=== PATIENT | female | born 1965 | race Caucasian/White ===

== ENCOUNTER 2021-02-01 02:07 | Inpatient (IN) ==
[2021-02-01] MEDS ORDERED: ENOXAPARIN 40 MG/0.4 ML SYRINGE SUBCUT SCH (03:00)
[2021-02-01] MEDS ORDERED: NOREPINEPHRINE 4 MG/4 ML VIAL IV ONE (05:35)
[2021-02-01] MEDS: NOREPINEPHRINE 8 MG in SODIUM CHLORIDE 0.9% 242 ML IV PRN (06:00)
[2021-02-01 06:16] LABS: Basophils % 0.2 % (0.0-0.8); Eosinophils % 0.1 % (0.00-10.9); Hematocrit 41.2 VOL% (35.7-47.0); Immature Granulocytes % 2.3 %; Immature Granulocytes Absolute 0.25 #; Lymphocytes # 1.5 10*3/uL (1.4-4.0); Lymphocytes % 14.3 % (21.3-54.2); Mean Corpuscular HGB Conc 31.6 GM/DL (32-36); Mean Corpuscular Volume 90.2 FL (87-102); Mean Platelet Volume 8.7 FL (9.6-12.0); Monocytes % 9.7 % (1.7-12.7); NRBC # 0.06 10*3/uL; Neutrophils % 73.4 % (38.7-73.9); Platelet Count 274 T/CUMM (130-400); Red Blood Count 4.57 MC/CUMM (3.8-5.5); Red Cell Distribution Width 15.4 % (9.3-17.3); White Blood Count 10.8 T/CUMM (4-12)
[2021-02-01 06:17] LABS: Basophils % 0.3 % (0.0-0.8); Eosinophils % 0.1 % (0.00-10.9); Hematocrit 41.1 VOL% (35.7-47.0); Hemoglobin 12.9 GM/DL (12.0-16.0); Immature Granulocytes % 2.5 %; Immature Granulocytes Absolute 0.27 #; Lymphocytes # 1.6 10*3/uL (1.4-4.0); Lymphocytes % 14.6 % (21.3-54.2); Mean Corpuscular HGB Conc 31.4 GM/DL (32-36); Mean Corpuscular Volume 90.3 FL (87-102); Mean Platelet Volume 8.6 FL (9.6-12.0); Monocytes % 9.9 % (1.7-12.7); NRBC # 0.05 10*3/uL; Neutrophils % 72.6 % (38.7-73.9); Platelet Count 279 T/CUMM (130-400); Red Blood Count 4.55 MC/CUMM (3.8-5.5); Red Cell Distribution Width 15.4 % (9.3-17.3); White Blood Count 10.6 T/CUMM (4-12)
[2021-02-01 06:38] LABS: Hypochromasia 1+; Microcytosis 1+
[2021-02-01 06:39] LABS: Ovalocytes Slight; Platelet Estimate Normal
[2021-02-01 06:43] LABS: Alanine Aminotransferase 34 U/L (13-56); Albumin 2.6 G/DL (3.4-5.0); Alkaline Phosphatase 94 U/L (45-117); Aspartate Amino Transferase 46 U/L (0-37); Bilirubin,Total < 0.39 MG/DL (0.20-1.00); Blood Urea Nitrogen 34 MG/DL (7-18); Calcium 8.2 MG/DL (8.5-10.1); Carbon Dioxide 26 MMOL/L (21-32); Estimated Glom Filtration Rate 51 ML/MIN; Glucose 129 MG/DL (74-106); Osmolality,Calculated 277.2 MOS/KG (273-304); Potassium 3.1 MMOL/L (3.5-5.1); Sodium 134 MMOL/L (136-145)
[2021-02-01 06:44] LABS: Albumin 2.6 G/DL (3.4-5.0); Calcium 8.3 MG/DL (8.5-10.1); Potassium 3.1 MMOL/L (3.5-5.1); Total Protein 6.3 G/DL (6.4-8.2)
[2021-02-01 06:51] LABS: Ferritin 817.9 ng/mL (8-252)
[2021-02-01 07:05] LABS: ABG Base Excess -0.7 MMOL/L (-2.5-2.5); ABG HCO3 23.6 MMOL/L (20-26); ABG Oxygen Saturation 90.7 % (95-100); ABG PCO2 37.4 MM HG (35-48); ABG PH 7.408 (7.35-7.45); ABG PO2 62.3 MM HG (80-95); ABG TCO2 20.5 MMOL/L (23-27)
[2021-02-01] MEDS ORDERED: LACTATED RINGERS 1,000 ML IV ONE (07:36)
[2021-02-01] MEDS: FAMOTIDINE 20 MG TABLET PO SCH ×2 (08:39→20:55)
[2021-02-01] MEDS: PARoxetine 20 MG TABLET PO SCH (08:39)
[2021-02-01] MEDS: POTASSIUM CHLORIDE 20 MEQ TABLET PO PRN ×4 (08:39→18:04)
[2021-02-01] MEDS: ASCORBIC ACID 500 MG TABLET PO SCH ×2 (08:39→20:55)
[2021-02-01] MEDS: ZINC GLUCONATE 50 MG TABLET PO SCH (08:39)
[2021-02-01] MEDS: CHOLECALCIFEROL 5,000 UNIT TABLET PO SCH (08:39)
[2021-02-01] MEDS: CETIRIZINE 10 MG TABLET PO SCH (08:40)
[2021-02-01] MEDS: ENOXAPARIN 60 MG/0.6 ML SYRINGE SUBCUT SCH ×2 (08:40→20:59)
[2021-02-01] MEDS: methylPREDNISolone SOD SUC 40 MG/1 ML VIAL IV SCH ×3 (08:40→20:59)
[2021-02-01] MEDS: IVERMECTIN 3 MG TABLET PO SCH (08:41)
[2021-02-01 08:53] LABS: Bacteria,Urine Occasional /HPF (Few); Bilirubin,Urine Negative (Negative); Blood, Urine Moderate mg/dL (Negative); Glucose,Urine (UA) Negative (Negative); Hyaline Casts,Urine 18 /LPF (0-3); Ketones,Urine Negative (Negative); Mucus,Urine Occasional /LPF (Occasional); Nitrite,Urine Negative (Negative); Protein,Urine 100 MG/DL; RBC,Urine 57 /HPF (0-4); Squamous Epithelial Cell,Urine Occasional /HPF (0-10); Urine Appearance Slightly Hazy (Clear); Urine Color Yellow (Yellow); Urine Specific Gravity 1.018 (1.001-1.035)
[2021-02-01] MEDS ORDERED: MAGNESIUM SULF RIDER 2 GM/50 ML PREMIX IV PRN (09:02)
[2021-02-01] MEDS ORDERED: MAGNESIUM SULF RIDER 4 GM/100 ML PREMIX IV PRN (09:02)
[2021-02-01] MEDS ORDERED: DEXTROSE 50% 25 GM/50 ML VIAL IV PRN (09:03)
[2021-02-01] MEDS ORDERED: GLUCAGON 1 MG VIAL IM PRN (09:03)
[2021-02-01] MEDS ORDERED: MIDAZOLAM 2 MG/2 ML VIAL IV ONE (09:14)
[2021-02-01] MEDS: DEXTROSE 5% LACTATED RINGERS 1,000 ML IV SCH ×2 (10:38→18:01)
[2021-02-01] MEDS: fentaNYL INJ 1,250 MCG in SODIUM CHLORIDE 0.9% 225 ML IV PRN (10:55)
[2021-02-01] MEDS: cefTRIAXone 1,000 MG in SODIUM CHLORIDE 0.9% 100 ML IV SCH (10:56)
[2021-02-01] MEDS: AZITHROMYCIN INJ 500 MG in SODIUM CHLORIDE 0.9% 250 ML IV SCH (12:21)
[2021-02-01] MEDS: INSULIN LISPRO 100 UNIT/ML SUBCUT SCH ×2 (12:41→18:59)
[2021-02-01] MEDS ORDERED: TOCILIZUMAB 800 MG in SODIUM CHLORIDE 0.9% 100 ML IV ONE (15:00)
[2021-02-01] MEDS: MELATONIN 3 MG TABLET PO SCH (20:55)
[2021-02-01] MEDS: ACETAMINOPHEN 325 MG TABLET PO PRN (21:38)
[2021-02-02] MEDS: fentaNYL INJ 1,250 MCG in SODIUM CHLORIDE 0.9% 225 ML IV PRN ×2 (00:08→11:37)
[2021-02-02] MEDS: NOREPINEPHRINE 8 MG in SODIUM CHLORIDE 0.9% 242 ML IV PRN ×2 (00:35→21:38)
[2021-02-02] MEDS: ACETAMINOPHEN 325 MG TABLET PO PRN ×2 (00:58→18:15)
[2021-02-02] MEDS: INSULIN LISPRO 100 UNIT/ML SUBCUT SCH ×4 (00:58→18:08)
[2021-02-02] MEDS: DEXTROSE 5% LACTATED RINGERS 1,000 ML IV SCH ×2 (01:15→03:51)
[2021-02-02] MEDS: methylPREDNISolone SOD SUC 40 MG/1 ML VIAL IV SCH ×4 (03:56→21:43)
[2021-02-02 04:37] LABS: ABG Base Excess -0.9 MMOL/L (-2.5-2.5); ABG HCO3 23.7 MMOL/L (20-26); ABG Oxygen Saturation 99.8 % (95-100); ABG PH 7.449 (7.35-7.45); ABG TCO2 19.2 MMOL/L (23-27)
[2021-02-02 05:14] LABS: Basophils % 0.3 % (0.0-0.8); Hematocrit 40.3 VOL% (35.7-47.0); Hemoglobin 12.7 GM/DL (12.0-16.0); Immature Granulocytes Absolute 0.69 #; Lymphocytes # 1.2 10*3/uL (1.4-4.0); Lymphocytes % 10.2 % (21.3-54.2); Mean Corpuscular HGB Conc 31.5 GM/DL (32-36); Mean Corpuscular Volume 90.4 FL (87-102); Mean Platelet Volume 9.4 FL (9.6-12.0); Monocytes % 8.1 % (1.7-12.7); NRBC # 0.11 10*3/uL; Neutrophils % 75.4 % (38.7-73.9); Platelet Count 307 T/CUMM (130-400); Red Blood Count 4.46 MC/CUMM (3.8-5.5); Red Cell Distribution Width 15.2 % (9.3-17.3); White Blood Count 11.5 T/CUMM (4-12)
[2021-02-02 05:40] LABS: Albumin 2.2 G/DL (3.4-5.0); Bilirubin,Total 0.4 MG/DL (0.20-1.00); Calcium 8.6 MG/DL (8.5-10.1); Ferritin 568.6 ng/mL (8-252); Osmolality,Calculated 294.3 MOS/KG (273-304); Potassium 3.7 MMOL/L (3.5-5.1)
[2021-02-02 05:45] LABS: Band Neutrophils 2 % (0-10); Hypochromasia Slight; Lymphocytes 6 % (20-55); Microcytosis Slight; Nucleated Red Blood Cells 1 (0-5); Platelet Estimate Adequate; Segmented Neutrophils 87 % (50-85); Total Cells Counted 100
[2021-02-02] MEDS: cefTRIAXone 1,000 MG in SODIUM CHLORIDE 0.9% 100 ML IV SCH (06:12)
[2021-02-02] MEDS ORDERED: LACTATED RINGERS 1,000 ML IV SCH (08:30)
[2021-02-02] MEDS: PARoxetine 20 MG TABLET PO SCH (09:12)
[2021-02-02] MEDS: CHOLECALCIFEROL 5,000 UNIT TABLET PO SCH (09:12)
[2021-02-02] MEDS: ENOXAPARIN 60 MG/0.6 ML SYRINGE SUBCUT SCH ×2 (09:12→21:42)
[2021-02-02] MEDS: ZINC GLUCONATE 50 MG TABLET PO SCH (09:12)
[2021-02-02] MEDS: ASCORBIC ACID 500 MG TABLET PO SCH ×2 (09:13→21:43)
[2021-02-02] MEDS: AZITHROMYCIN INJ 500 MG in SODIUM CHLORIDE 0.9% 250 ML IV SCH (09:13)
[2021-02-02] MEDS: FAMOTIDINE 20 MG TABLET PO SCH ×2 (09:13→21:43)
[2021-02-02] MEDS: CETIRIZINE 10 MG TABLET PO SCH (09:13)
[2021-02-02] MEDS: IVERMECTIN 3 MG TABLET PO SCH (09:15)
[2021-02-02] MEDS: PIPERACILLIN/TAZOBACTAM 3,375 MG in SODIUM CHLORIDE 0.9% 100 ML IV SCH ×2 (10:39→18:08)
[2021-02-02 12:02] LABS: ABG Base Excess -3.6 MMOL/L (-2.5-2.5); ABG HCO3 21.4 MMOL/L (20-26); ABG Oxygen Saturation 97.3 % (95-100); ABG PCO2 39.4 MM HG (35-48); ABG PH 7.349 (7.35-7.45)
[2021-02-02] MEDS: MELATONIN 3 MG TABLET PO SCH (21:43)
[2021-02-03] MEDS: fentaNYL INJ 1,250 MCG in SODIUM CHLORIDE 0.9% 225 ML IV PRN ×2 (00:20→14:40)
[2021-02-03] MEDS ORDERED: ROCURONIUM 100 MG/10 ML VIAL IV ONE ×2 (01:57→02:07)
[2021-02-03] MEDS: methylPREDNISolone SOD SUC 40 MG/1 ML VIAL IV SCH ×4 (02:36→21:29)
[2021-02-03] MEDS: INSULIN LISPRO 100 UNIT/ML SUBCUT SCH ×4 (02:36→18:38)
[2021-02-03] MEDS: ACETAMINOPHEN 325 MG TABLET PO PRN (04:21)
[2021-02-03 04:24] LABS: ABG Base Excess -0.7 MMOL/L (-2.5-2.5); ABG HCO3 23.9 MMOL/L (20-26); ABG Oxygen Saturation 99.3 % (95-100); ABG PCO2 33.3 MM HG (35-48); ABG PH 7.441 (7.35-7.45); ABG TCO2 19.7 MMOL/L (23-27)
[2021-02-03 05:05] LABS: Basophils % 0.2 % (0.0-0.8); Hematocrit 41.2 VOL% (35.7-47.0); Hemoglobin 12.8 GM/DL (12.0-16.0); Immature Granulocytes % 5.7 %; Lymphocytes # 1.6 10*3/uL (1.4-4.0); Lymphocytes % 8.5 % (21.3-54.2); Mean Corpuscular HGB Conc 31.1 GM/DL (32-36); Mean Corpuscular Volume 91.8 FL (87-102); Mean Platelet Volume 9.1 FL (9.6-12.0); Monocytes % 10.4 % (1.7-12.7); NRBC # 0.15 10*3/uL; Neutrophils % 75.2 % (38.7-73.9); Platelet Count 371 T/CUMM (130-400); Red Blood Count 4.49 MC/CUMM (3.8-5.5); Red Cell Distribution Width 15.5 % (9.3-17.3); White Blood Count 19.4 T/CUMM (4-12)
[2021-02-03 05:26] LABS: Band Neutrophils 1 % (0-10); Hypochromasia Slight; Lymphocytes 9 % (20-55); Microcytosis Slight; Nucleated Red Blood Cells 3 (0-5); Platelet Estimate Adequate; Segmented Neutrophils 87 % (50-85); Total Cells Counted 100
[2021-02-03 05:40] LABS: Calcium 8.9 MG/DL (8.5-10.1); Potassium 3.8 MMOL/L (3.5-5.1)
[2021-02-03 05:52] LABS: Calcium 8.7 MG/DL (8.5-10.1); Ferritin 445.9 ng/mL (8-252); Osmolality,Calculated 290.4 MOS/KG (273-304); Potassium 3.9 MMOL/L (3.5-5.1)
[2021-02-03] MEDS: ENOXAPARIN 60 MG/0.6 ML SYRINGE SUBCUT SCH ×2 (10:03→20:20)
[2021-02-03] MEDS: PARoxetine 20 MG TABLET PO SCH (10:04)
[2021-02-03] MEDS: FAMOTIDINE 20 MG TABLET PO SCH ×2 (10:04→20:20)
[2021-02-03] MEDS: CHOLECALCIFEROL 5,000 UNIT TABLET PO SCH (10:05)
[2021-02-03] MEDS: ASCORBIC ACID 500 MG TABLET PO SCH ×2 (10:05→20:21)
[2021-02-03] MEDS: CETIRIZINE 10 MG TABLET PO SCH (10:05)
[2021-02-03] MEDS: ZINC GLUCONATE 50 MG TABLET PO SCH (10:05)
[2021-02-03] MEDS: AZITHROMYCIN INJ 500 MG in SODIUM CHLORIDE 0.9% 250 ML IV SCH (10:05)
[2021-02-03] MEDS: IVERMECTIN 3 MG TABLET PO SCH (10:07)
[2021-02-03] MEDS: PIPERACILLIN/TAZOBACTAM 3,375 MG in SODIUM CHLORIDE 0.9% 100 ML IV SCH ×3 (11:37→17:10)
[2021-02-03] MEDS: MELATONIN 3 MG TABLET PO SCH (20:20)
[2021-02-04] MEDS: PIPERACILLIN/TAZOBACTAM 3,375 MG in SODIUM CHLORIDE 0.9% 100 ML IV SCH ×4 (00:32→23:34)
[2021-02-04] MEDS: INSULIN LISPRO 100 UNIT/ML SUBCUT SCH ×4 (00:53→18:16)
[2021-02-04] MEDS: fentaNYL INJ 1,250 MCG in SODIUM CHLORIDE 0.9% 225 ML IV PRN ×2 (02:26→15:09)
[2021-02-04] MEDS: methylPREDNISolone SOD SUC 40 MG/1 ML VIAL IV SCH ×2 (02:28→08:16)
[2021-02-04 04:29] LABS: ABG Base Excess -1.4 MMOL/L (-2.5-2.5); ABG HCO3 23.2 MMOL/L (20-26); ABG PCO2 36.6 MM HG (35-48); ABG PH 7.404 (7.35-7.45); ABG PO2 85.6 MM HG (80-95); ABG TCO2 20.1 MMOL/L (23-27)
[2021-02-04 05:50] LABS: Basophils # 0.1 10*3/uL (0.0-0.2); Basophils % 0.3 % (0.0-0.8); Eosinophils % 0.1 % (0.00-10.9); Hematocrit 38.9 VOL% (35.7-47.0); Hemoglobin 12.5 GM/DL (12.0-16.0); Immature Granulocytes % 7.1 %; Immature Granulocytes Absolute 1.21 #; Lymphocytes # 1.6 10*3/uL (1.4-4.0); Lymphocytes % 9.1 % (21.3-54.2); Mean Corpuscular HGB Conc 32.1 GM/DL (32-36); Mean Corpuscular Volume 91.7 FL (87-102); Mean Platelet Volume 9.6 FL (9.6-12.0); Monocytes % 8.5 % (1.7-12.7); NRBC # 0.08 10*3/uL; Neutrophils % 74.9 % (38.7-73.9); Platelet Count 333 T/CUMM (130-400); Red Blood Count 4.24 MC/CUMM (3.8-5.5); Red Cell Distribution Width 15.4 % (9.3-17.3); White Blood Count 17.1 T/CUMM (4-12)
[2021-02-04 06:10] LABS: Band Neutrophils 3 % (0-10); Hypochromasia Slight; Lymphocytes 8 % (20-55); Metamyelocytes 1 %; Nucleated Red Blood Cells 1 (0-5); Segmented Neutrophils 79 % (50-85); Total Cells Counted 100
[2021-02-04 06:11] LABS: Microcytosis 1+; Platelet Estimate Normal; Polychromasia Slight
[2021-02-04 07:20] LABS: Calcium 8.8 MG/DL (8.5-10.1)
[2021-02-04] MEDS: AZITHROMYCIN INJ 500 MG in SODIUM CHLORIDE 0.9% 250 ML IV SCH (08:15)
[2021-02-04] MEDS: PARoxetine 20 MG TABLET PO SCH (08:16)
[2021-02-04] MEDS: FAMOTIDINE 20 MG TABLET PO SCH ×2 (08:16→21:33)
[2021-02-04] MEDS: ENOXAPARIN 60 MG/0.6 ML SYRINGE SUBCUT SCH ×2 (08:16→21:00)
[2021-02-04] MEDS: CHOLECALCIFEROL 5,000 UNIT TABLET PO SCH (08:17)
[2021-02-04] MEDS: CETIRIZINE 10 MG TABLET PO SCH (08:17)
[2021-02-04] MEDS: ASCORBIC ACID 500 MG TABLET PO SCH ×2 (08:17→21:01)
[2021-02-04] MEDS: ZINC GLUCONATE 50 MG TABLET PO SCH (08:21)
[2021-02-04] MEDS ORDERED: FUROSEMIDE 40 MG/4 ML VIAL IV ONE (08:41)
[2021-02-04] MEDS: methylPREDNISolone SOD SUC 125 MG/2 ML VIAL IV SCH ×3 (09:31→23:35)
[2021-02-04] MEDS: INSULIN GLARGINE 100 UNIT/ML SUBCUT SCH (11:06)
[2021-02-04 14:51] LABS: Amorphous Crystals,Urine Occasional /HPF (Few); Bilirubin,Urine Negative (Negative); Blood, Urine Moderate mg/dL (Negative); Glucose,Urine (UA) Negative (Negative); Hyaline Casts,Urine 4 /LPF (0-3); Ketones,Urine Negative (Negative); Nitrite,Urine Negative (Negative); Protein,Urine 30 MG/DL; RBC,Urine 139 /HPF (0-4); Squamous Epithelial Cell,Urine Occasional /HPF (0-10); Urine Appearance CLOUDY (Clear); Urine Color Yellow (Yellow); Urine Urobilinogen < 2.0 EU/DL (0.2-1.0)
[2021-02-04] MEDS: MELATONIN 3 MG TABLET PO SCH (21:00)
[2021-02-05] MEDS: INSULIN LISPRO 100 UNIT/ML SUBCUT SCH ×4 (00:35→18:43)
[2021-02-05 03:52] LABS: ABG Base Excess -0.1 MMOL/L (-2.5-2.5); ABG HCO3 23.6 MMOL/L (20-26); ABG PCO2 35.7 MM HG (35-48); ABG PH 7.439 (7.35-7.45); ABG PO2 93.8 MM HG (80-95); ABG TCO2 24.7 MMOL/L (23-27)
[2021-02-05 04:22] LABS: Basophils # 0.1 10*3/uL (0.0-0.2); Basophils % 0.4 % (0.0-0.8); Hematocrit 38.6 VOL% (35.7-47.0); Hemoglobin 11.9 GM/DL (12.0-16.0); Immature Granulocytes % 9.9 %; Immature Granulocytes Absolute 1.28 #; Lymphocytes # 1.1 10*3/uL (1.4-4.0); Lymphocytes % 8.2 % (21.3-54.2); Mean Corpuscular HGB Conc 30.8 GM/DL (32-36); Mean Corpuscular Volume 92.3 FL (87-102); Mean Platelet Volume 9.4 FL (9.6-12.0); Monocytes % 8.6 % (1.7-12.7); NRBC # 0.06 10*3/uL; Neutrophils % 72.9 % (38.7-73.9); Platelet Count 307 T/CUMM (130-400); Red Blood Count 4.18 MC/CUMM (3.8-5.5); Red Cell Distribution Width 15.3 % (9.3-17.3)
[2021-02-05 04:48] LABS: Albumin 2.3 G/DL (3.4-5.0); Bilirubin,Total 0.6 MG/DL (0.20-1.00); Calcium 8.7 MG/DL (8.5-10.1); Osmolality,Calculated 302.8 MOS/KG (273-304); Potassium 3.7 MMOL/L (3.5-5.1); Total Protein 5.4 G/DL (6.4-8.2)
[2021-02-05 04:51] LABS: Band Neutrophils 1 % (0-10); Lymphocytes 8 % (20-55); Nucleated Red Blood Cells 2 (0-5); Platelet Estimate Adequate; Segmented Neutrophils 86 % (50-85); Total Cells Counted 100
[2021-02-05] MEDS: fentaNYL INJ 1,250 MCG in SODIUM CHLORIDE 0.9% 225 ML IV PRN ×2 (07:07→21:29)
[2021-02-05] MEDS: ASCORBIC ACID 500 MG TABLET PO SCH ×2 (08:28→20:26)
[2021-02-05] MEDS: FAMOTIDINE 20 MG TABLET PO SCH ×2 (08:28→20:26)
[2021-02-05] MEDS: PARoxetine 20 MG TABLET PO SCH (08:28)
[2021-02-05] MEDS: CHOLECALCIFEROL 5,000 UNIT TABLET PO SCH (08:28)
[2021-02-05] MEDS: CETIRIZINE 10 MG TABLET PO SCH (08:28)
[2021-02-05] MEDS: ZINC GLUCONATE 50 MG TABLET PO SCH (08:28)
[2021-02-05] MEDS: PIPERACILLIN/TAZOBACTAM 3,375 MG in SODIUM CHLORIDE 0.9% 100 ML IV SCH ×2 (08:29→16:20)
[2021-02-05] MEDS: methylPREDNISolone SOD SUC 125 MG/2 ML VIAL IV SCH ×2 (08:31→16:20)
[2021-02-05] MEDS: INSULIN GLARGINE 100 UNIT/ML SUBCUT SCH (08:32)
[2021-02-05] MEDS: ENOXAPARIN 60 MG/0.6 ML SYRINGE SUBCUT SCH ×2 (08:32→20:25)
[2021-02-05] MEDS: AZITHROMYCIN INJ 500 MG in SODIUM CHLORIDE 0.9% 250 ML IV SCH (10:11)
[2021-02-05] MEDS: FLUCONAZOLE 40 MG/ML 35 ML/BOTTLE PO SCH (12:29)
[2021-02-05] MEDS: MELATONIN 3 MG TABLET PO SCH (20:25)
[2021-02-06] MEDS: methylPREDNISolone SOD SUC 125 MG/2 ML VIAL IV SCH ×3 (00:12→16:42)
[2021-02-06] MEDS: PIPERACILLIN/TAZOBACTAM 3,375 MG in SODIUM CHLORIDE 0.9% 100 ML IV SCH ×3 (00:12→16:00)
[2021-02-06] MEDS: INSULIN LISPRO 100 UNIT/ML SUBCUT SCH ×4 (00:20→18:49)
[2021-02-06] MEDS: fentaNYL INJ 1,250 MCG in SODIUM CHLORIDE 0.9% 225 ML IV PRN ×3 (03:56→19:43)
[2021-02-06 04:19] LABS: ABG Base Excess -0.7 MMOL/L (-2.5-2.5); ABG Oxygen Saturation 96.1 % (95-100); ABG PCO2 35.1 MM HG (35-48); ABG PH 7.435 (7.35-7.45); ABG PO2 87.7 MM HG (80-95); ABG TCO2 24.1 MMOL/L (23-27)
[2021-02-06 05:01] LABS: Basophils # 0.1 10*3/uL (0.0-0.2); Basophils % 0.4 % (0.0-0.8); Hematocrit 37.4 VOL% (35.7-47.0); Hemoglobin 12.1 GM/DL (12.0-16.0); Immature Granulocytes % 10.6 %; Immature Granulocytes Absolute 1.34 #; Lymphocytes # 0.8 10*3/uL (1.4-4.0); Lymphocytes % 6.1 % (21.3-54.2); Mean Corpuscular HGB Conc 32.4 GM/DL (32-36); Mean Corpuscular Volume 92.1 FL (87-102); Mean Platelet Volume 9.4 FL (9.6-12.0); Monocytes % 8.3 % (1.7-12.7); NRBC # 0.06 10*3/uL; Neutrophils % 74.6 % (38.7-73.9); Platelet Count 352 T/CUMM (130-400); Red Blood Count 4.06 MC/CUMM (3.8-5.5); Red Cell Distribution Width 15.5 % (9.3-17.3); White Blood Count 12.7 T/CUMM (4-12)
[2021-02-06 05:24] LABS: Albumin 2.4 G/DL (3.4-5.0); Band Neutrophils 2 % (0-10); Bilirubin,Total 0.5 MG/DL (0.20-1.00); Calcium 8.2 MG/DL (8.5-10.1); Lymphocytes 10 % (20-55); Myelocytes 1 %; Osmolality,Calculated 294.3 MOS/KG (273-304); Platelet Estimate Normal; Segmented Neutrophils 80 % (50-85); Total Cells Counted 100; Total Protein 5.4 G/DL (6.4-8.2)
[2021-02-06] MEDS: ENOXAPARIN 60 MG/0.6 ML SYRINGE SUBCUT SCH ×2 (08:00→21:14)
[2021-02-06] MEDS: INSULIN GLARGINE 100 UNIT/ML SUBCUT SCH (08:01)
[2021-02-06] MEDS: ZINC GLUCONATE 50 MG TABLET PO SCH (08:02)
[2021-02-06] MEDS: CETIRIZINE 10 MG TABLET PO SCH (08:02)
[2021-02-06] MEDS: PARoxetine 20 MG TABLET PO SCH (08:02)
[2021-02-06] MEDS: FAMOTIDINE 20 MG TABLET PO SCH ×2 (08:02→21:36)
[2021-02-06] MEDS: ASCORBIC ACID 500 MG TABLET PO SCH ×2 (08:02→21:14)
[2021-02-06] MEDS: CHOLECALCIFEROL 5,000 UNIT TABLET PO SCH (08:02)
[2021-02-06] MEDS ORDERED: FUROSEMIDE 40 MG/4 ML VIAL IV ONE (10:04)
[2021-02-06] MEDS: FLUCONAZOLE 40 MG/ML 35 ML/BOTTLE PO SCH (11:10)
[2021-02-06] MEDS: MELATONIN 3 MG TABLET PO SCH (21:33)
[2021-02-06] MEDS: ACETAMINOPHEN 325 MG TABLET PO PRN (21:35)
[2021-02-07] MEDS: INSULIN LISPRO 100 UNIT/ML SUBCUT SCH ×4 (01:31→18:34)
[2021-02-07] MEDS: PIPERACILLIN/TAZOBACTAM 3,375 MG in SODIUM CHLORIDE 0.9% 100 ML IV SCH ×3 (01:32→18:34)
[2021-02-07] MEDS: methylPREDNISolone SOD SUC 125 MG/2 ML VIAL IV SCH ×3 (01:32→18:34)
[2021-02-07] MEDS: fentaNYL INJ 1,250 MCG in SODIUM CHLORIDE 0.9% 225 ML IV PRN ×3 (02:45→17:32)
[2021-02-07 03:52] LABS: ABG Base Excess 0.2 MMOL/L (-2.5-2.5); ABG HCO3 24.6 MMOL/L (20-26); ABG Oxygen Saturation 98.5 % (95-100); ABG PCO2 34.6 MM HG (35-48); ABG PH 7.444 (7.35-7.45); ABG TCO2 20.8 MMOL/L (23-27)
[2021-02-07 04:56] LABS: Basophils % 0.2 % (0.0-0.8); Eosinophils % 0.2 % (0.00-10.9); Hematocrit 38.4 VOL% (35.7-47.0); Hemoglobin 12.2 GM/DL (12.0-16.0); Immature Granulocytes % 8.2 %; Immature Granulocytes Absolute 1.06 #; Lymphocytes # 0.6 10*3/uL (1.4-4.0); Lymphocytes % 4.6 % (21.3-54.2); Mean Corpuscular HGB Conc 31.8 GM/DL (32-36); Mean Platelet Volume 9.4 FL (9.6-12.0); Neutrophils % 78.8 % (38.7-73.9); Platelet Count 350 T/CUMM (130-400); Red Blood Count 4.22 MC/CUMM (3.8-5.5); Red Cell Distribution Width 15.8 % (9.3-17.3)
[2021-02-07 05:17] LABS: Albumin 2.5 G/DL (3.4-5.0); Bilirubin,Total 1.2 MG/DL (0.20-1.00); Calcium 8.7 MG/DL (8.5-10.1); Potassium 3.8 MMOL/L (3.5-5.1); Total Protein 5.6 G/DL (6.4-8.2)
[2021-02-07 05:34] LABS: Band Neutrophils 3 % (0-10); Lymphocytes 6 % (20-55); Metamyelocytes 2 %; Platelet Estimate Increased; Promyelocytes 2 %; Segmented Neutrophils 84 % (50-85); Total Cells Counted 100
[2021-02-07 05:35] LABS: Polychromasia Slight
[2021-02-07] MEDS: FLUCONAZOLE 40 MG/ML 35 ML/BOTTLE PO SCH (09:51)
[2021-02-07] MEDS: INSULIN GLARGINE 100 UNIT/ML SUBCUT SCH (09:53)
[2021-02-07] MEDS: ZINC GLUCONATE 50 MG TABLET PO SCH (09:53)
[2021-02-07] MEDS: ASCORBIC ACID 500 MG TABLET PO SCH ×2 (09:53→20:31)
[2021-02-07] MEDS: ENOXAPARIN 60 MG/0.6 ML SYRINGE SUBCUT SCH ×2 (09:53→20:32)
[2021-02-07] MEDS: CHOLECALCIFEROL 5,000 UNIT TABLET PO SCH (09:54)
[2021-02-07] MEDS: CETIRIZINE 10 MG TABLET PO SCH (09:54)
[2021-02-07] MEDS: POTASSIUM CHLORIDE 20 MEQ TABLET PO PRN (09:54)
[2021-02-07] MEDS: PARoxetine 20 MG TABLET PO SCH (09:54)
[2021-02-07] MEDS: FAMOTIDINE 20 MG TABLET PO SCH ×2 (09:54→20:32)
[2021-02-07 15:37] LABS: Bilirubin,Urine Negative (Negative); Blood, Urine Small mg/dL (Negative); Glucose,Urine (UA) Negative (Negative); Ketones,Urine Negative (Negative); Mucus,Urine Occasional /LPF (Occasional); Nitrite,Urine Negative (Negative); Protein,Urine Negative; RBC,Urine 58 /HPF (0-4); Squamous Epithelial Cell,Urine Occasional /HPF (0-10); Urine Appearance Slightly Hazy (Clear); Urine Color Yellow (Yellow); Urine Urobilinogen < 2.0 EU/DL (0.2-1.0)
[2021-02-07] MEDS: MELATONIN 3 MG TABLET PO SCH (20:31)
[2021-02-08] MEDS: INSULIN LISPRO 100 UNIT/ML SUBCUT SCH ×4 (00:44→18:31)
[2021-02-08] MEDS: methylPREDNISolone SOD SUC 125 MG/2 ML VIAL IV SCH ×3 (01:48→18:32)
[2021-02-08] MEDS: fentaNYL INJ 1,250 MCG in SODIUM CHLORIDE 0.9% 225 ML IV PRN ×3 (03:10→21:47)
[2021-02-08] MEDS: PIPERACILLIN/TAZOBACTAM 3,375 MG in SODIUM CHLORIDE 0.9% 100 ML IV SCH ×3 (03:43→18:32)
[2021-02-08 05:11] LABS: Basophils % 0.2 % (0.0-0.8); Hematocrit 39.1 VOL% (35.7-47.0); Hemoglobin 12.4 GM/DL (12.0-16.0); Immature Granulocytes % 7.1 %; Immature Granulocytes Absolute 0.87 #; Lymphocytes # 0.5 10*3/uL (1.4-4.0); Lymphocytes % 4.4 % (21.3-54.2); Mean Corpuscular HGB Conc 31.7 GM/DL (32-36); Mean Corpuscular Volume 92.7 FL (87-102); Mean Platelet Volume 9.4 FL (9.6-12.0); Monocytes % 6.9 % (1.7-12.7); Neutrophils % 81.4 % (38.7-73.9); Platelet Count 369 T/CUMM (130-400); Red Blood Count 4.22 MC/CUMM (3.8-5.5); Red Cell Distribution Width 15.6 % (9.3-17.3); White Blood Count 12.3 T/CUMM (4-12)
[2021-02-08 05:21] LABS: ABG Base Excess -1.7 MMOL/L (-2.5-2.5); ABG HCO3 22.8 MMOL/L (20-26); ABG Oxygen Saturation 88.8 % (95-100); ABG PCO2 36.5 MM HG (35-48); ABG PH 7.401 (7.35-7.45); ABG PO2 60.5 MM HG (80-95)
[2021-02-08 05:22] LABS: Calcium 8.7 MG/DL (8.5-10.1); Osmolality,Calculated 295.1 MOS/KG (273-304); Potassium 3.8 MMOL/L (3.5-5.1)
[2021-02-08 05:48] LABS: Band Neutrophils 5 % (0-10); Lymphocytes 7 % (20-55); Platelet Estimate Normal; Segmented Neutrophils 85 % (50-85); Total Cells Counted 100
[2021-02-08] MEDS: POTASSIUM CHLORIDE 20 MEQ TABLET PO PRN (05:55)
[2021-02-08] MEDS: ASCORBIC ACID 500 MG TABLET PO SCH ×2 (09:16→20:50)
[2021-02-08] MEDS: ZINC GLUCONATE 50 MG TABLET PO SCH (09:16)
[2021-02-08] MEDS: INSULIN GLARGINE 100 UNIT/ML SUBCUT SCH (09:16)
[2021-02-08] MEDS: FAMOTIDINE 20 MG TABLET PO SCH ×2 (09:17→20:50)
[2021-02-08] MEDS: CHOLECALCIFEROL 5,000 UNIT TABLET PO SCH (09:17)
[2021-02-08] MEDS: PARoxetine 20 MG TABLET PO SCH (09:17)
[2021-02-08] MEDS: CETIRIZINE 10 MG TABLET PO SCH (09:17)
[2021-02-08] MEDS: ENOXAPARIN 60 MG/0.6 ML SYRINGE SUBCUT SCH ×2 (09:18→20:49)
[2021-02-08 18:00] LABS: ABG Base Excess -1.5 MMOL/L (-2.5-2.5); ABG HCO3 23.2 MMOL/L (20-26); ABG Oxygen Saturation 99.3 % (95-100); ABG PH 7.449 (7.35-7.45); ABG TCO2 18.9 MMOL/L (23-27); Allen Test Positive; Pt O2 Delivery Device Ventilator
[2021-02-08] MEDS: MELATONIN 3 MG TABLET PO SCH (20:49)
[2021-02-09] MEDS: INSULIN LISPRO 100 UNIT/ML SUBCUT SCH ×4 (00:55→17:12)
[2021-02-09] MEDS: methylPREDNISolone SOD SUC 125 MG/2 ML VIAL IV SCH ×3 (03:58→17:12)
[2021-02-09 04:00] LABS: ABG Base Excess -1.4 MMOL/L (-2.5-2.5); ABG HCO3 23.2 MMOL/L (20-26); ABG Oxygen Saturation 99.1 % (95-100); ABG PCO2 32.6 MM HG (35-48); ABG PH 7.436 (7.35-7.45); ABG TCO2 19.1 MMOL/L (23-27)
[2021-02-09] MEDS: PIPERACILLIN/TAZOBACTAM 3,375 MG in SODIUM CHLORIDE 0.9% 100 ML IV SCH ×3 (04:00→18:17)
[2021-02-09 04:54] LABS: Basophils % 0.2 % (0.0-0.8); Eosinophils % 0.2 % (0.00-10.9); Hematocrit 38.5 VOL% (35.7-47.0); Hemoglobin 12.3 GM/DL (12.0-16.0); Immature Granulocytes % 5.7 %; Immature Granulocytes Absolute 0.66 #; Lymphocytes # 0.4 10*3/uL (1.4-4.0); Lymphocytes % 3.7 % (21.3-54.2); Mean Corpuscular HGB Conc 31.9 GM/DL (32-36); Mean Corpuscular Volume 91.4 FL (87-102); Mean Platelet Volume 9.1 FL (9.6-12.0); Monocytes % 7.1 % (1.7-12.7); Neutrophils % 83.1 % (38.7-73.9); Platelet Count 357 T/CUMM (130-400); Red Blood Count 4.21 MC/CUMM (3.8-5.5); Red Cell Distribution Width 15.5 % (9.3-17.3); White Blood Count 11.5 T/CUMM (4-12)
[2021-02-09 05:14] LABS: Band Neutrophils 2 % (0-10); Eosinophils 1 % (0-10); Lymphocytes 4 % (20-55); Platelet Estimate Adequate; Segmented Neutrophils 90 % (50-85); Total Cells Counted 100
[2021-02-09 05:15] LABS: Hypochromasia Slight; Microcytosis Slight
[2021-02-09 05:23] LABS: Calcium 8.6 MG/DL (8.5-10.1); Osmolality,Calculated 293.3 MOS/KG (273-304); Potassium 4.1 MMOL/L (3.5-5.1)
[2021-02-09] MEDS: fentaNYL INJ 1,250 MCG in SODIUM CHLORIDE 0.9% 225 ML IV PRN ×2 (06:17→16:15)
[2021-02-09] MEDS: PARoxetine 20 MG TABLET PO SCH (08:31)
[2021-02-09] MEDS: CHOLECALCIFEROL 5,000 UNIT TABLET PO SCH (08:31)
[2021-02-09] MEDS: CETIRIZINE 10 MG TABLET PO SCH (08:31)
[2021-02-09] MEDS: FAMOTIDINE 20 MG TABLET PO SCH ×2 (08:31→20:10)
[2021-02-09] MEDS: INSULIN GLARGINE 100 UNIT/ML SUBCUT SCH (08:31)
[2021-02-09] MEDS: ASCORBIC ACID 500 MG TABLET PO SCH ×2 (08:31→20:10)
[2021-02-09] MEDS: ENOXAPARIN 60 MG/0.6 ML SYRINGE SUBCUT SCH ×2 (08:31→20:10)
[2021-02-09] MEDS: ZINC GLUCONATE 50 MG TABLET PO SCH (08:32)
[2021-02-09] MEDS: MELATONIN 3 MG TABLET PO SCH (20:08)
[2021-02-09] MEDS: ACETAMINOPHEN 325 MG TABLET PO PRN (20:11)
[2021-02-10] MEDS: INSULIN LISPRO 100 UNIT/ML SUBCUT SCH ×4 (00:23→17:54)
[2021-02-10] MEDS: fentaNYL INJ 1,250 MCG in SODIUM CHLORIDE 0.9% 225 ML IV PRN ×2 (00:55→11:01)
[2021-02-10] MEDS: methylPREDNISolone SOD SUC 125 MG/2 ML VIAL IV SCH (01:05)
[2021-02-10 04:57] LABS: ABG Base Excess -1.9 MMOL/L (-2.5-2.5); ABG HCO3 22.8 MMOL/L (20-26); ABG Oxygen Saturation 96.4 % (95-100); ABG PCO2 34.2 MM HG (35-48); ABG PH 7.416 (7.35-7.45); ABG PO2 86.1 MM HG (80-95); ABG TCO2 19.3 MMOL/L (23-27)
[2021-02-10 05:16] LABS: Calcium 8.5 MG/DL (8.5-10.1); Osmolality,Calculated 289.4 MOS/KG (273-304)
[2021-02-10] MEDS: ZINC GLUCONATE 50 MG TABLET PO SCH (08:02)
[2021-02-10] MEDS: CETIRIZINE 10 MG TABLET PO SCH (08:02)
[2021-02-10] MEDS: ASCORBIC ACID 500 MG TABLET PO SCH ×2 (08:02→20:21)
[2021-02-10] MEDS: PARoxetine 20 MG TABLET PO SCH (08:02)
[2021-02-10] MEDS: FAMOTIDINE 20 MG TABLET PO SCH ×2 (08:03→20:21)
[2021-02-10] MEDS: ENOXAPARIN 60 MG/0.6 ML SYRINGE SUBCUT SCH ×2 (08:03→20:20)
[2021-02-10] MEDS: INSULIN GLARGINE 100 UNIT/ML SUBCUT SCH (08:04)
[2021-02-10] MEDS: CHOLECALCIFEROL 5,000 UNIT TABLET PO SCH (08:05)
[2021-02-10 08:10] LABS: Basophils % 0.2 % (0.0-0.8); Eosinophils # 0.1 10*3/uL (0.0-0.87); Eosinophils % 0.7 % (0.00-10.9); Hematocrit 38.5 VOL% (35.7-47.0); Hemoglobin 12.1 GM/DL (12.0-16.0); Immature Granulocytes % 4.5 %; Lymphocytes # 0.4 10*3/uL (1.4-4.0); Lymphocytes % 3.6 % (21.3-54.2); Mean Corpuscular HGB Conc 31.4 GM/DL (32-36); Mean Corpuscular Volume 93.2 FL (87-102); Mean Platelet Volume 9.6 FL (9.6-12.0); Monocytes % 11.1 % (1.7-12.7); Neutrophils % 79.9 % (38.7-73.9); Platelet Count 382 T/CUMM (130-400); Red Blood Count 4.13 MC/CUMM (3.8-5.5); Red Cell Distribution Width 15.5 % (9.3-17.3)
[2021-02-10 08:32] LABS: Band Neutrophils 1 % (0-10); Eosinophils 2 % (0-10); Lymphocytes 6 % (20-55); Platelet Estimate Adequate; Segmented Neutrophils 85 % (50-85); Total Cells Counted 100
[2021-02-10 08:33] LABS: Hypochromasia Slight; Microcytosis Slight
[2021-02-10 08:47] LABS: ABG Base Excess -1.8 MMOL/L (-2.5-2.5); ABG HCO3 21.9 MMOL/L (20-26); ABG PH 7.426 (7.35-7.45); ABG PO2 96.7 MM HG (80-95); ABG TCO2 22.9 MMOL/L (23-27)
[2021-02-10] MEDS: FLUCONAZOLE INJ 200 MG/100 ML PREMIX IV SCH (09:22)
[2021-02-10] MEDS: methylPREDNISolone SOD SUC 40 MG/1 ML VIAL IV SCH ×2 (09:22→17:54)
[2021-02-10] MEDS: MELATONIN 3 MG TABLET PO SCH (20:21)
[2021-02-11] MEDS: INSULIN LISPRO 100 UNIT/ML SUBCUT SCH ×4 (00:36→17:32)
[2021-02-11] MEDS: methylPREDNISolone SOD SUC 40 MG/1 ML VIAL IV SCH ×3 (01:40→17:32)
[2021-02-11] MEDS: fentaNYL INJ 1,250 MCG in SODIUM CHLORIDE 0.9% 225 ML IV PRN ×2 (02:11→19:43)
[2021-02-11 03:58] LABS: ABG Base Excess 0.1 MMOL/L (-2.5-2.5); ABG HCO3 24.4 MMOL/L (20-26); ABG Oxygen Saturation 93.5 % (95-100); ABG PCO2 31.1 MM HG (35-48); ABG PH 7.475 (7.35-7.45); ABG PO2 65.7 MM HG (80-95); ABG TCO2 20.2 MMOL/L (23-27)
[2021-02-11 04:23] LABS: Basophils % 0.1 % (0.0-0.8); Eosinophils # 0.1 10*3/uL (0.0-0.87); Eosinophils % 1.3 % (0.00-10.9); Hematocrit 37.1 VOL% (35.7-47.0); Hemoglobin 11.6 GM/DL (12.0-16.0); Immature Granulocytes % 2.4 %; Immature Granulocytes Absolute 0.23 #; Lymphocytes # 0.6 10*3/uL (1.4-4.0); Lymphocytes % 6.3 % (21.3-54.2); Mean Corpuscular HGB Conc 31.3 GM/DL (32-36); Mean Corpuscular Volume 92.8 FL (87-102); Monocytes % 10.5 % (1.7-12.7); Neutrophils % 79.4 % (38.7-73.9); Platelet Count 342 T/CUMM (130-400); Red Cell Distribution Width 15.3 % (9.3-17.3); White Blood Count 9.7 T/CUMM (4-12)
[2021-02-11 04:40] LABS: Calcium 8.4 MG/DL (8.5-10.1); Osmolality,Calculated 284.5 MOS/KG (273-304); Potassium 3.8 MMOL/L (3.5-5.1)
[2021-02-11 04:58] LABS: Ferritin 400.7 ng/mL (8-252)
[2021-02-11] MEDS: FLUCONAZOLE INJ 200 MG/100 ML PREMIX IV SCH (08:27)
[2021-02-11] MEDS: INSULIN GLARGINE 100 UNIT/ML SUBCUT SCH (08:28)
[2021-02-11] MEDS: FAMOTIDINE 20 MG TABLET PO SCH ×2 (08:31→21:29)
[2021-02-11] MEDS: CETIRIZINE 10 MG TABLET PO SCH (08:31)
[2021-02-11] MEDS: ASCORBIC ACID 500 MG TABLET PO SCH ×2 (08:31→21:29)
[2021-02-11] MEDS: ENOXAPARIN 60 MG/0.6 ML SYRINGE SUBCUT SCH ×2 (08:31→21:28)
[2021-02-11] MEDS: ZINC GLUCONATE 50 MG TABLET PO SCH (08:31)
[2021-02-11] MEDS: PARoxetine 20 MG TABLET PO SCH (08:32)
[2021-02-11] MEDS: CHOLECALCIFEROL 5,000 UNIT TABLET PO SCH (08:32)
[2021-02-11 10:06] LABS: ABG Base Excess 0.3 MMOL/L (-2.5-2.5); ABG HCO3 24.6 MMOL/L (20-26); ABG Oxygen Saturation 90.8 % (95-100); ABG PCO2 35.5 MM HG (35-48); ABG PH 7.439 (7.35-7.45); ABG TCO2 21.2 MMOL/L (23-27)
[2021-02-11] MEDS: MELATONIN 3 MG TABLET PO SCH (21:28)
[2021-02-12] MEDS: INSULIN LISPRO 100 UNIT/ML SUBCUT SCH ×4 (00:10→18:23)
[2021-02-12] MEDS: methylPREDNISolone SOD SUC 40 MG/1 ML VIAL IV SCH ×3 (02:40→18:22)
[2021-02-12 04:20] LABS: ABG HCO3 25.2 MMOL/L (20-26); ABG Oxygen Saturation 91.7 % (95-100); ABG PCO2 40.7 MM HG (35-48); ABG PH 7.408 (7.35-7.45); ABG PO2 65.6 MM HG (80-95); ABG TCO2 22.8 MMOL/L (23-27)
[2021-02-12 04:59] LABS: Basophils % 0.1 % (0.0-0.8); Eosinophils # 0.1 10*3/uL (0.0-0.87); Eosinophils % 1.4 % (0.00-10.9); Hematocrit 41.3 VOL% (35.7-47.0); Hemoglobin 13.2 GM/DL (12.0-16.0); Immature Granulocytes % 2.1 %; Immature Granulocytes Absolute 0.16 #; Lymphocytes # 0.7 10*3/uL (1.4-4.0); Lymphocytes % 8.5 % (21.3-54.2); Mean Corpuscular Volume 91.8 FL (87-102); Monocytes % 10.4 % (1.7-12.7); Neutrophils % 77.5 % (38.7-73.9); Red Cell Distribution Width 15.8 % (9.3-17.3); White Blood Count 7.8 T/CUMM (4-12)
[2021-02-12 05:00] LABS: Platelet Count 245 T/CUMM (130-400)
[2021-02-12 05:15] LABS: Calcium 8.3 MG/DL (8.5-10.1); Osmolality,Calculated 281.7 MOS/KG (273-304); Potassium 4.2 MMOL/L (3.5-5.1)
[2021-02-12] MEDS: fentaNYL INJ 1,250 MCG in SODIUM CHLORIDE 0.9% 225 ML IV PRN (08:26)
[2021-02-12] MEDS: PARoxetine 20 MG TABLET PO SCH (08:27)
[2021-02-12] MEDS: ZINC GLUCONATE 50 MG TABLET PO SCH (08:27)
[2021-02-12] MEDS: FAMOTIDINE 20 MG TABLET PO SCH ×2 (08:27→21:13)
[2021-02-12] MEDS: ASCORBIC ACID 500 MG TABLET PO SCH ×2 (08:27→21:13)
[2021-02-12] MEDS: CHOLECALCIFEROL 5,000 UNIT TABLET PO SCH (08:28)
[2021-02-12] MEDS: FLUCONAZOLE INJ 200 MG/100 ML PREMIX IV SCH (08:28)
[2021-02-12] MEDS: ENOXAPARIN 60 MG/0.6 ML SYRINGE SUBCUT SCH ×2 (08:28→21:13)
[2021-02-12] MEDS: CETIRIZINE 10 MG TABLET PO SCH (08:28)
[2021-02-12] MEDS: INSULIN GLARGINE 100 UNIT/ML SUBCUT SCH (08:29)
[2021-02-12] MEDS ORDERED: FUROSEMIDE 40 MG/4 ML VIAL IV ONE (08:49)
[2021-02-12] MEDS: MELATONIN 3 MG TABLET PO SCH (21:13)
[2021-02-13] MEDS: INSULIN LISPRO 100 UNIT/ML SUBCUT SCH ×4 (00:57→17:38)
[2021-02-13] MEDS: methylPREDNISolone SOD SUC 40 MG/1 ML VIAL IV SCH ×3 (02:33→17:39)
[2021-02-13 03:51] LABS: ABG HCO3 28.9 MMOL/L (20-26); ABG Oxygen Saturation 96.7 % (95-100); ABG PCO2 39.1 MM HG (35-48); ABG PH 7.476 (7.35-7.45); ABG TCO2 25.2 MMOL/L (23-27)
[2021-02-13 04:52] LABS: Basophils % 0.1 % (0.0-0.8); Eosinophils # 0.1 10*3/uL (0.0-0.87); Eosinophils % 1.1 % (0.00-10.9); Hematocrit 37.7 VOL% (35.7-47.0); Hemoglobin 11.9 GM/DL (12.0-16.0); Immature Granulocytes % 1.8 %; Immature Granulocytes Absolute 0.17 #; Lymphocytes # 0.6 10*3/uL (1.4-4.0); Lymphocytes % 5.8 % (21.3-54.2); Mean Corpuscular HGB Conc 31.6 GM/DL (32-36); Mean Corpuscular Volume 91.5 FL (87-102); Mean Platelet Volume 8.9 FL (9.6-12.0); Monocytes % 12.3 % (1.7-12.7); Neutrophils % 78.9 % (38.7-73.9); Platelet Count 354 T/CUMM (130-400); Red Blood Count 4.12 MC/CUMM (3.8-5.5); Red Cell Distribution Width 15.5 % (9.3-17.3); White Blood Count 9.4 T/CUMM (4-12)
[2021-02-13 05:05] LABS: Calcium 8.5 MG/DL (8.5-10.1); Osmolality,Calculated 278.8 MOS/KG (273-304); Potassium 4.1 MMOL/L (3.5-5.1)
[2021-02-13] MEDS ORDERED: FUROSEMIDE 40 MG/4 ML VIAL IV ONE (07:57)
[2021-02-13] MEDS: FLUCONAZOLE INJ 200 MG/100 ML PREMIX IV SCH (08:54)
[2021-02-13] MEDS: CHOLECALCIFEROL 5,000 UNIT TABLET PO SCH (08:55)
[2021-02-13] MEDS: FAMOTIDINE 20 MG TABLET PO SCH ×2 (08:55→20:35)
[2021-02-13] MEDS: INSULIN GLARGINE 100 UNIT/ML SUBCUT SCH (08:55)
[2021-02-13] MEDS: ENOXAPARIN 60 MG/0.6 ML SYRINGE SUBCUT SCH ×2 (08:55→20:35)
[2021-02-13] MEDS: CETIRIZINE 10 MG TABLET PO SCH (08:56)
[2021-02-13] MEDS: PARoxetine 20 MG TABLET PO SCH (08:56)
[2021-02-13] MEDS: ASCORBIC ACID 500 MG TABLET PO SCH ×2 (08:56→20:35)
[2021-02-13] MEDS: ZINC GLUCONATE 50 MG TABLET PO SCH (08:56)
[2021-02-13] MEDS: MELATONIN 3 MG TABLET PO SCH (20:35)
[2021-02-13] MEDS: fentaNYL INJ 1,250 MCG in SODIUM CHLORIDE 0.9% 225 ML IV PRN (23:33)
[2021-02-14] MEDS: INSULIN LISPRO 100 UNIT/ML SUBCUT SCH ×4 (01:00→18:14)
[2021-02-14] MEDS: methylPREDNISolone SOD SUC 40 MG/1 ML VIAL IV SCH ×3 (01:40→21:16)
[2021-02-14 03:29] LABS: ABG Base Excess 7.2 MMOL/L (-2.5-2.5); ABG HCO3 30.9 MMOL/L (20-26); ABG Oxygen Saturation 93.5 % (95-100); ABG PCO2 40.5 MM HG (35-48); ABG PH 7.494 (7.35-7.45); ABG PO2 65.2 MM HG (80-95); ABG TCO2 27.3 MMOL/L (23-27)
[2021-02-14 05:24] LABS: Basophils % 0.1 % (0.0-0.8); Eosinophils % 0.4 % (0.00-10.9); Hematocrit 37.3 VOL% (35.7-47.0); Immature Granulocytes % 1.4 %; Immature Granulocytes Absolute 0.14 #; Lymphocytes # 0.5 10*3/uL (1.4-4.0); Mean Corpuscular HGB Conc 32.2 GM/DL (32-36); Mean Corpuscular Volume 91.4 FL (87-102); Mean Platelet Volume 8.8 FL (9.6-12.0); Monocytes % 10.1 % (1.7-12.7); Platelet Count 316 T/CUMM (130-400); Red Blood Count 4.08 MC/CUMM (3.8-5.5); Red Cell Distribution Width 15.4 % (9.3-17.3); White Blood Count 9.8 T/CUMM (4-12)
[2021-02-14 05:36] LABS: Calcium 8.7 MG/DL (8.5-10.1); Osmolality,Calculated 281.7 MOS/KG (273-304)
[2021-02-14] MEDS: ENOXAPARIN 60 MG/0.6 ML SYRINGE SUBCUT SCH ×2 (09:23→20:21)
[2021-02-14] MEDS: INSULIN GLARGINE 100 UNIT/ML SUBCUT SCH (09:24)
[2021-02-14] MEDS: ZINC GLUCONATE 50 MG TABLET PO SCH (09:24)
[2021-02-14] MEDS: FAMOTIDINE 20 MG TABLET PO SCH ×2 (09:25→20:21)
[2021-02-14] MEDS: PARoxetine 20 MG TABLET PO SCH (09:25)
[2021-02-14] MEDS: CETIRIZINE 10 MG TABLET PO SCH (09:25)
[2021-02-14] MEDS: CHOLECALCIFEROL 5,000 UNIT TABLET PO SCH (09:25)
[2021-02-14] MEDS: ASCORBIC ACID 500 MG TABLET PO SCH ×2 (09:25→20:22)
[2021-02-14] MEDS: MELATONIN 3 MG TABLET PO SCH (20:21)
[2021-02-15] MEDS ORDERED: SCOPOLAMINE 1.5 MG PATCH TRANSDERM ONE (00:31)
[2021-02-15] MEDS: INSULIN LISPRO 100 UNIT/ML SUBCUT SCH ×4 (00:33→17:18)
[2021-02-15 04:48] LABS: Basophils % 0.1 % (0.0-0.8); Eosinophils % 0.4 % (0.00-10.9); Hematocrit 37.4 VOL% (35.7-47.0); Hemoglobin 12.1 GM/DL (12.0-16.0); Immature Granulocytes % 1.2 %; Immature Granulocytes Absolute 0.11 #; Lymphocytes # 0.8 10*3/uL (1.4-4.0); Lymphocytes % 8.4 % (21.3-54.2); Mean Corpuscular HGB Conc 32.4 GM/DL (32-36); Mean Corpuscular Volume 91.9 FL (87-102); Mean Platelet Volume 8.9 FL (9.6-12.0); Monocytes % 13.2 % (1.7-12.7); Neutrophils % 76.7 % (38.7-73.9); Platelet Count 308 T/CUMM (130-400); Red Blood Count 4.07 MC/CUMM (3.8-5.5); White Blood Count 8.9 T/CUMM (4-12)
[2021-02-15 05:11] LABS: Albumin 2.7 G/DL (3.4-5.0); Bilirubin,Total 0.7 MG/DL (0.20-1.00); Calcium 8.7 MG/DL (8.5-10.1); Potassium 4.2 MMOL/L (3.5-5.1); Total Protein 5.2 G/DL (6.4-8.2)
[2021-02-15 05:13] LABS: ABG Base Excess 7.3 MMOL/L (-2.5-2.5); ABG HCO3 30.5 MMOL/L (20-26); ABG Oxygen Saturation 93.2 % (95-100); ABG PCO2 37.9 MM HG (35-48); ABG PH 7.523 (7.35-7.45); ABG PO2 64.7 MM HG (80-95); ABG TCO2 31.6 MMOL/L (23-27)
[2021-02-15] MEDS: fentaNYL INJ 1,250 MCG in SODIUM CHLORIDE 0.9% 225 ML IV PRN (06:18)
[2021-02-15] MEDS: FAMOTIDINE 20 MG TABLET PO SCH ×2 (08:59→20:30)
[2021-02-15] MEDS: ZINC GLUCONATE 50 MG TABLET PO SCH (08:59)
[2021-02-15] MEDS: ASCORBIC ACID 500 MG TABLET PO SCH ×2 (08:59→20:30)
[2021-02-15] MEDS: CHOLECALCIFEROL 5,000 UNIT TABLET PO SCH (08:59)
[2021-02-15] MEDS: INSULIN GLARGINE 100 UNIT/ML SUBCUT SCH (09:00)
[2021-02-15] MEDS: methylPREDNISolone SOD SUC 40 MG/1 ML VIAL IV SCH ×2 (09:00→20:40)
[2021-02-15] MEDS: CETIRIZINE 10 MG TABLET PO SCH (09:00)
[2021-02-15] MEDS: PARoxetine 20 MG TABLET PO SCH (09:00)
[2021-02-15] MEDS: ENOXAPARIN 100 MG/ML SYRINGE SUBCUT SCH ×2 (10:05→22:28)
[2021-02-15 14:06] LABS: ABG Base Excess 6.2 MMOL/L (-2.5-2.5); ABG Oxygen Saturation 95.2 % (95-100); ABG PCO2 42.4 MM HG (35-48); ABG PH 7.467 (7.35-7.45); ABG PO2 75.2 MM HG (80-95); ABG TCO2 26.6 MMOL/L (23-27)
[2021-02-15] MEDS ORDERED: ENOXAPARIN 100 MG/ML SYRINGE SUBCUT SCH (21:00)
[2021-02-15] MEDS: MELATONIN 3 MG TABLET PO SCH (22:29)
[2021-02-16] MEDS: INSULIN LISPRO 100 UNIT/ML SUBCUT SCH ×4 (00:25→17:15)
[2021-02-16 04:11] LABS: Allen Test Positive; Pt O2 Delivery Device Ventilator
[2021-02-16 04:15] LABS: ABG Base Excess 6.3 MMOL/L (-2.5-2.5); ABG HCO3 30.2 MMOL/L (20-26); ABG Oxygen Saturation 96.6 % (95-100); ABG PCO2 39.7 MM HG (35-48); ABG PH 7.489 (7.35-7.45); ABG PO2 80.4 MM HG (80-95); ABG TCO2 26.5 MMOL/L (23-27)
[2021-02-16 04:34] LABS: Basophils % 0.1 % (0.0-0.8); Eosinophils # 0.1 10*3/uL (0.0-0.87); Eosinophils % 0.9 % (0.00-10.9); Hematocrit 39.4 VOL% (35.7-47.0); Hemoglobin 12.2 GM/DL (12.0-16.0); Immature Granulocytes % 1.2 %; Immature Granulocytes Absolute 0.09 #; Lymphocytes # 0.5 10*3/uL (1.4-4.0); Mean Corpuscular Volume 91.8 FL (87-102); Mean Platelet Volume 9.1 FL (9.6-12.0); Monocytes % 9.1 % (1.7-12.7); Neutrophils % 81.7 % (38.7-73.9); Platelet Count 296 T/CUMM (130-400); Red Blood Count 4.29 MC/CUMM (3.8-5.5); Red Cell Distribution Width 16.1 % (9.3-17.3); White Blood Count 7.6 T/CUMM (4-12)
[2021-02-16 04:53] LABS: Blood Urea Nitrogen 27 MG/DL (7-18); Calcium 8.8 MG/DL (8.5-10.1); Carbon Dioxide 31 MMOL/L (21-32); Estimated Glom Filtration Rate 125 ML/MIN; Ferritin 378.5 ng/mL (8-252); Glucose 164 MG/DL (74-106); Potassium 4.3 MMOL/L (3.5-5.1); Sodium 136 MMOL/L (136-145)
[2021-02-16] MEDS ORDERED: FUROSEMIDE 40 MG/4 ML VIAL IV ONE (08:13)
[2021-02-16] MEDS: methylPREDNISolone SOD SUC 40 MG/1 ML VIAL IV SCH ×2 (08:55→21:37)
[2021-02-16] MEDS: INSULIN GLARGINE 100 UNIT/ML SUBCUT SCH (08:55)
[2021-02-16] MEDS: ENOXAPARIN 100 MG/ML SYRINGE SUBCUT SCH ×2 (08:55→21:36)
[2021-02-16] MEDS: ZINC GLUCONATE 50 MG TABLET PO SCH (08:59)
[2021-02-16] MEDS: PARoxetine 20 MG TABLET PO SCH (09:00)
[2021-02-16] MEDS: FAMOTIDINE 20 MG TABLET PO SCH ×2 (09:00→21:36)
[2021-02-16] MEDS: ASCORBIC ACID 500 MG TABLET PO SCH ×2 (09:00→21:37)
[2021-02-16] MEDS: CETIRIZINE 10 MG TABLET PO SCH (09:00)
[2021-02-16] MEDS: CHOLECALCIFEROL 5,000 UNIT TABLET PO SCH (09:00)
[2021-02-16] MEDS: MELATONIN 3 MG TABLET PO SCH (21:37)
[2021-02-16] MEDS: fentaNYL INJ 1,250 MCG in SODIUM CHLORIDE 0.9% 225 ML IV PRN (21:38)
[2021-02-17 03:38] LABS: ABG Base Excess 7.9 MMOL/L (-2.5-2.5); ABG HCO3 31.6 MMOL/L (20-26); ABG Oxygen Saturation 96.3 % (95-100); ABG PCO2 39.5 MM HG (35-48); ABG PO2 77.7 MM HG (80-95); ABG TCO2 27.9 MMOL/L (23-27)
[2021-02-17] MEDS: INSULIN LISPRO 100 UNIT/ML SUBCUT SCH ×4 (03:46→18:13)
[2021-02-17 04:53] LABS: Basophils % 0.1 % (0.0-0.8); Eosinophils % 0.6 % (0.00-10.9); Hematocrit 35.6 VOL% (35.7-47.0); Hemoglobin 11.3 GM/DL (12.0-16.0); Immature Granulocytes Absolute 0.07 #; Lymphocytes # 0.7 10*3/uL (1.4-4.0); Lymphocytes % 9.1 % (21.3-54.2); Mean Corpuscular HGB Conc 31.7 GM/DL (32-36); Mean Corpuscular Volume 91.3 FL (87-102); Mean Platelet Volume 8.7 FL (9.6-12.0); Monocytes % 9.7 % (1.7-12.7); Neutrophils % 79.5 % (38.7-73.9); Platelet Count 243 T/CUMM (130-400); Red Cell Distribution Width 15.8 % (9.3-17.3); White Blood Count 7.1 T/CUMM (4-12)
[2021-02-17 05:06] LABS: Bilirubin,Total 1.7 MG/DL (0.20-1.00); Calcium 8.8 MG/DL (8.5-10.1); Osmolality,Calculated 277.1 MOS/KG (273-304); Potassium 4.3 MMOL/L (3.5-5.1); Total Protein 5.6 G/DL (6.4-8.2)
[2021-02-17] MEDS: ENOXAPARIN 100 MG/ML SYRINGE SUBCUT SCH ×2 (08:07→21:30)
[2021-02-17] MEDS: methylPREDNISolone SOD SUC 40 MG/1 ML VIAL IV SCH ×2 (08:07→21:28)
[2021-02-17] MEDS: INSULIN GLARGINE 100 UNIT/ML SUBCUT SCH (08:07)
[2021-02-17] MEDS: ASCORBIC ACID 500 MG TABLET PO SCH ×2 (08:08→21:31)
[2021-02-17] MEDS: FAMOTIDINE 20 MG TABLET PO SCH ×2 (08:08→21:30)
[2021-02-17] MEDS: ZINC GLUCONATE 50 MG TABLET PO SCH (08:08)
[2021-02-17] MEDS: CHOLECALCIFEROL 5,000 UNIT TABLET PO SCH (08:09)
[2021-02-17] MEDS: CETIRIZINE 10 MG TABLET PO SCH (08:09)
[2021-02-17] MEDS: PARoxetine 20 MG TABLET PO SCH (08:09)
[2021-02-17] MEDS: ALPRAZolam 0.25 MG TABLET PO PRN (11:43)
[2021-02-17] MEDS: MELATONIN 3 MG TABLET PO SCH (21:28)
[2021-02-18] MEDS: INSULIN LISPRO 100 UNIT/ML SUBCUT SCH ×4 (00:45→18:00)
[2021-02-18] MEDS: PHENYLEPHRINE DRIP 40 MG/250 ML PREMIX IV PRN ×3 (00:58→12:49)
[2021-02-18 04:26] LABS: ABG Base Excess 4.5 MMOL/L (-2.5-2.5); ABG HCO3 28.4 MMOL/L (20-26); ABG PH 7.478 (7.35-7.45); ABG TCO2 25.7 MMOL/L (23-27)
[2021-02-18 05:14] LABS: Basophils % 0.1 % (0.0-0.8); Eosinophils # 0.1 10*3/uL (0.0-0.87); Eosinophils % 0.5 % (0.00-10.9); Hematocrit 29.4 VOL% (35.7-47.0); Hemoglobin 9.1 GM/DL (12.0-16.0); Lymphocytes # 1.3 10*3/uL (1.4-4.0); Lymphocytes % 6.7 % (21.3-54.2); Mean Corpuscular Volume 95.5 FL (87-102); Mean Platelet Volume 8.8 FL (9.6-12.0); Monocytes % 10.2 % (1.7-12.7); Neutrophils % 81.5 % (38.7-73.9); Platelet Count 308 T/CUMM (130-400); Red Blood Count 3.08 MC/CUMM (3.8-5.5); Red Cell Distribution Width 15.9 % (9.3-17.3); White Blood Count 19.1 T/CUMM (4-12)
[2021-02-18 05:29] LABS: Calcium 8.6 MG/DL (8.5-10.1); Osmolality,Calculated 282.7 MOS/KG (273-304); Potassium 3.9 MMOL/L (3.5-5.1)
[2021-02-18 05:42] LABS: Band Neutrophils 2 % (0-10); Eosinophils 2 % (0-10); Lymphocytes 3 % (20-55); Segmented Neutrophils 87 % (50-85); Total Cells Counted 100
[2021-02-18 05:43] LABS: Hypochromasia Slight; Microcytosis 1+; Platelet Estimate Normal; Polychromasia Slight
[2021-02-18] MEDS ORDERED: FUROSEMIDE 40 MG/4 ML VIAL IV ONE (06:45)
[2021-02-18] MEDS: ZINC GLUCONATE 50 MG TABLET PO SCH (09:03)
[2021-02-18] MEDS: ASCORBIC ACID 500 MG TABLET PO SCH ×2 (09:04→23:22)
[2021-02-18] MEDS: PARoxetine 20 MG TABLET PO SCH (09:04)
[2021-02-18] MEDS: CHOLECALCIFEROL 5,000 UNIT TABLET PO SCH (09:04)
[2021-02-18] MEDS: FAMOTIDINE 20 MG TABLET PO SCH ×2 (09:04→23:22)
[2021-02-18] MEDS: INSULIN GLARGINE 100 UNIT/ML SUBCUT SCH (09:05)
[2021-02-18] MEDS: CETIRIZINE 10 MG TABLET PO SCH (09:05)
[2021-02-18] MEDS: ENOXAPARIN 100 MG/ML SYRINGE SUBCUT SCH (09:05)
[2021-02-18] MEDS: methylPREDNISolone SOD SUC 40 MG/1 ML VIAL IV SCH ×2 (09:05→23:22)
[2021-02-18] MEDS: ALPRAZolam 0.25 MG TABLET PO PRN (09:06)
[2021-02-18] MEDS ORDERED: LORazepam 2 MG/1 ML VIAL IV PRN (10:21)
[2021-02-18] MEDS ORDERED: METOPROLOL TARTRATE 5 MG/5 ML VIAL IV ONE ×2 (10:44→10:45)
[2021-02-18] MEDS ORDERED: DEXMEDETOMIDINE 200 MCG in SODIUM CHLORIDE 0.9% 48 ML IV PRN (11:00)
[2021-02-18] MEDS ORDERED: SODIUM CHLORIDE 0.9% 500 ML IV ONE ×2 (11:08→13:05)
[2021-02-18 11:50] LABS: ABG Base Excess -4.3 MMOL/L (-2.5-2.5); ABG HCO3 20.8 MMOL/L (20-26); ABG PCO2 42.4 MM HG (35-48); ABG PH 7.314 (7.35-7.45); ABG TCO2 20.7 MMOL/L (23-27)
[2021-02-18 12:20] LABS: Basophils % 0.1 % (0.0-0.8); Eosinophils # 0.2 10*3/uL (0.0-0.87); Eosinophils % 0.8 % (0.00-10.9); Hematocrit 20.3 VOL% (35.7-47.0); Immature Granulocytes % 3.8 %; Lymphocytes # 1.5 10*3/uL (1.4-4.0); Lymphocytes % 6.1 % (21.3-54.2); Mean Corpuscular HGB Conc 30.5 GM/DL (32-36); Mean Corpuscular Volume 98.5 FL (87-102); Mean Platelet Volume 8.9 FL (9.6-12.0); NRBC # 0.03 10*3/uL; Neutrophils % 81.2 % (38.7-73.9); Platelet Count 270 T/CUMM (130-400); Red Cell Distribution Width 15.9 % (9.3-17.3); White Blood Count 23.6 T/CUMM (4-12)
[2021-02-18 12:24] LABS: Hemoglobin 6.2 GM/DL (12.0-16.0); Red Blood Count 2.06 MC/CUMM (3.8-5.5)
[2021-02-18 12:35] LABS: Blood Urea Nitrogen 27 MG/DL (7-18); Calcium 7.4 MG/DL (8.5-10.1); Carbon Dioxide 23 MMOL/L (21-32); Estimated Glom Filtration Rate 102 ML/MIN; Glucose 263 MG/DL (74-106); Osmolality,Calculated 290.5 MOS/KG (273-304); Potassium 3.4 MMOL/L (3.5-5.1); Sodium 139 MMOL/L (136-145)
[2021-02-18 12:49] LABS: Anisocytosis 1+; Band Neutrophils 25 % (0-10); Lymphocytes 5 % (20-55); Metamyelocytes 2 %; Platelet Estimate Normal; Polychromasia Slight; Segmented Neutrophils 61 % (50-85); Smudge Cells 1+; Total Cells Counted 100
[2021-02-18 12:50] LABS: Macrocytosis 1+
[2021-02-18] MEDS ORDERED: SODIUM CHLORIDE 0.9% 1,000 ML IV PRN (13:08)
[2021-02-18] MEDS: PHENYLEPHRINE INJ 160 MG in SODIUM CHLORIDE 0.9% 234 ML IV PRN ×2 (14:09→19:31)
[2021-02-18] MEDS ORDERED: MIDAZOLAM 2 MG/2 ML VIAL IV ONE (15:09)
[2021-02-18] MEDS ORDERED: MIDAZOLAM 100 MG in SODIUM CHLORIDE 0.9% 80 ML IV PRN (15:09)
[2021-02-18] MEDS ORDERED: NOREPINEPHRINE 4 MG/4 ML VIAL IV ONE (15:28)
[2021-02-18] MEDS ORDERED: DIGOXIN 0.5 MG/2 ML AMP ONE (15:29)
[2021-02-18] MEDS ORDERED: DIGOXIN 0.5 MG/2 ML AMP IV ONE ×2 (15:29→16:00)
[2021-02-18] MEDS ORDERED: HYDROCORTISONE 100 MG VIAL ONE (16:43)
[2021-02-18] MEDS ORDERED: HYDROCORTISONE 100 MG VIAL IV ONE (16:45)
[2021-02-18] MEDS: NOREPINEPHRINE 16 MG in SODIUM CHLORIDE 0.9% 234 ML IV PRN ×3 (16:48→23:26)
[2021-02-18 16:51] LABS: ABG PCO2 24.8 MM HG (35-48)
[2021-02-18 16:52] LABS: ABG HCO3 7.9 MMOL/L (20-26); ABG Oxygen Saturation 99.6 % (95-100); ABG TCO2 6.9 MMOL/L (23-27)
[2021-02-18] MEDS ORDERED: CALCIUM CHLORIDE 1,000 MG/10 ML SYRINGE IV ONE ×3 (16:53→21:52)
[2021-02-18] MEDS ORDERED: SODIUM BICARBONATE 50 MEQ/50 ML VIAL IV ONE ×6 (16:53→21:32)
[2021-02-18] MEDS: OLANZapine 5 MG TABLET PO SCH ×2 (17:17→23:02)
[2021-02-18] MEDS: fentaNYL INJ 1,250 MCG in SODIUM CHLORIDE 0.9% 225 ML IV PRN (17:17)
[2021-02-18] MEDS ORDERED: HEPARIN DRIP 25,000 UNITS/500 ML PREMIX IV SCH (17:30)
[2021-02-18] MEDS: SODIUM BICARB INJ 150 MEQ in STERILE WATER INJ 1,000 ML IV SCH (17:49)
[2021-02-18] MEDS: ALBUMIN 25% 12.5 GM/50 ML VIAL IV SCH (18:02)
[2021-02-18 18:34] LABS: ABG Base Excess -16.3 MMOL/L (-2.5-2.5); ABG HCO3 11.8 MMOL/L (20-26); ABG Oxygen Saturation 99.7 % (95-100); ABG PCO2 30.7 MM HG (35-48); ABG TCO2 10.9 MMOL/L (23-27)
[2021-02-18 18:37] LABS: ABG PH 7.167 (7.35-7.45)
[2021-02-18] MEDS ORDERED: SODIUM CHLORIDE 0.9% 1,000 ML IV ONE (20:06)
[2021-02-18] MEDS: MELATONIN 3 MG TABLET PO SCH (23:02)
[2021-02-18 23:05] LABS: ABG Base Excess -13.1 MMOL/L (-2.5-2.5); ABG Oxygen Saturation 99.8 % (95-100); ABG PCO2 28.2 MM HG (35-48); ABG PH 7.266 (7.35-7.45); ABG TCO2 12.3 MMOL/L (23-27)
[2021-02-18] MEDS: HYDROCORTISONE 100 MG VIAL IV SCH (23:23)
[2021-02-19 00:45] LABS: Basophils # 0.1 10*3/uL (0.0-0.2); Basophils % 0.2 % (0.0-0.8); Eosinophils % 0.1 % (0.00-10.9); Hematocrit 20.5 VOL% (35.7-47.0); Immature Granulocytes % 7.7 %; Lymphocytes # 2.5 10*3/uL (1.4-4.0); Lymphocytes % 8.4 % (21.3-54.2); Mean Corpuscular HGB Conc 29.8 GM/DL (32-36); Mean Corpuscular Volume 95.8 FL (87-102); Mean Platelet Volume 10.3 FL (9.6-12.0); Monocytes % 11.3 % (1.7-12.7); NRBC # 1.71 10*3/uL; Neutrophils % 72.3 % (38.7-73.9); Platelet Count 85 T/CUMM (130-400); Red Blood Count 2.14 MC/CUMM (3.8-5.5); Red Cell Distribution Width 16.1 % (9.3-17.3); White Blood Count 29.7 T/CUMM (4-12)
[2021-02-19 00:46] LABS: Hemoglobin 6.1 GM/DL (12.0-16.0)
[2021-02-19] MEDS: PHENYLEPHRINE INJ 160 MG in SODIUM CHLORIDE 0.9% 234 ML IV PRN (00:53)
[2021-02-19 01:08] LABS: Band Neutrophils 7 % (0-10); Lymphocytes 14 % (20-55); Metamyelocytes 3 %; Nucleated Red Blood Cells 5 (0-5); Segmented Neutrophils 68 % (50-85); Total Cells Counted 100
[2021-02-19 01:09] LABS: Hypochromasia 2+; Platelet Estimate Decreased
[2021-02-19] MEDS ORDERED: SODIUM CHLORIDE 0.9% 1,000 ML IV PRN (01:33)
[2021-02-19] MEDS ORDERED: SODIUM BICARBONATE 50 MEQ/50 ML SYRINGE IV ONE (02:22)
[2021-02-19] MEDS: NOREPINEPHRINE 16 MG in SODIUM CHLORIDE 0.9% 234 ML IV PRN (02:28)
[2021-02-19] MEDS ORDERED: CALCIUM CHLORIDE 1,000 MG/10 ML SYRINGE IV ONE (03:30)
[2021-02-19] MEDS ORDERED: SODIUM BICARBONATE 50 MEQ/50 ML VIAL IV ONE (03:30)
[2021-02-19] MEDS: ALBUMIN 25% 12.5 GM/50 ML VIAL IV SCH (06:09)
[2021-02-19] MEDS: HYDROCORTISONE 100 MG VIAL IV SCH (06:11)
[2021-02-19] MEDS: SODIUM BICARB INJ 150 MEQ in STERILE WATER INJ 1,000 ML IV SCH (06:11)
[2021-02-19] MEDS: INSULIN LISPRO 100 UNIT/ML SUBCUT SCH ×2 (07:08)
[2021-02-19 08:37] VITALS: BP 68/28
== END 2021-02-19 04:26 | disposition expired | DRG 870 ==
LOC: N.CC 05:30 → SUATTDRO 05:30
PROVIDERS: ADMIT Family Medicine; ATTEND Internal Medicine